=== PATIENT | female | born 1995 | race Caucasian/White ===

== ENCOUNTER 2019-07-25 11:48 | Emergency (ER) | payer SELFPAY | END 2019-07-25 14:36 | disposition home or self-care (01) | LOC: ER 11:48 | DX: J06.9 Acute upper respiratory infection, unspecified (principal); Z20.828 Contact with and (suspected) exposure to other viral communicable diseases; F45.8 Other somatoform disorders; B34.9 Viral infection, unspecified; R11.2 Nausea with vomiting, unspecified; F17.210 Nicotine dependence, cigarettes, uncomplicated ==

== ENCOUNTER 2019-10-15 10:59 | Inpatient (IN) | payer OTHER ==
[~2019-10-15] VITALS: Ht 162.6 cm; Wt 77.2 kg
--- NOTE | ~2019-10-15 | HC ---
[facility] [place] [address] CONSULTATION Name: LEONARD HERNANDEZ Room #: 170-1 ADM IN M.R.#: [id number] Admission: 10/15/19 Attend Phys: Elroy Sandy MD Discharge: Date of : 89 Report #: [id number] THIS REPORT FOR: cc: Monica Chatterjee Christine L. DO Khosla, Parveen K. MD ~ CC: Monica Sandy DATE OF SERVICE: 10/15/2019 HISTORY OF PRESENT ILLNESS: This is a 24-year-old female patient who was discussed with Dr. Frederick, multiple times today. The patient had presented with nonspecific symptoms that she has some numbness in her lower extremities, which became better, but today she had facial numbness, which started yesterday. Because of that, the possibility of MS was entertained and an MRI was obtained. MRI was done and they described the lesions consistent with multiple sclerosis. I reviewed the MRI and I reviewed the MRI films and this patient has a lesion on the right side, which is periventricular and it is a prominent lesion, but the patient's symptoms are also on the right side. They have described some brainstem or mid brain lesions to me that does not appear to be very impressive. There is a question of lesion in the cerebellum. Symptoms are sensory. REVIEW OF SYSTEMS: Indicate her records indicate that she was here not too long ago. She was a COVID suspect, but the test was negative. She does have what looks like some anxiety. She has lost her insurance recently. To me, she tells me she does not smoke or drink alcohol. Some of the records indicates that she used to smoke about 5-6 cigarettes a day. Otherwise, she is healthy and a 14-point review of system was mostly noncontributory. PAST MEDICAL HISTORY: Negative for any problems like this. FAMILY HISTORY: Negative for MS. SOCIAL HISTORY: She does not drink alcohol. PHYSICAL EXAMINATION: Indicate she is alert, responsive, able to follow simple and complex command. Cranial nerve examinations appear mostly unremarkable except she says sensation is different on the right side as compared to the left side. There is no meningeal sign. There is no carotid bruit. Reflexes are symmetrical and plantar appear to be downgoing. I could not look at the fundus. Blood pressure is 102/75, respiration is 24, and pulse is 92. LABORATORY DATA: Done recently and they were okay. The patient already had an MRI of the brain with and without contrast and that does not appear to be showing any enhancement in the lesion. She had a urine test, which [address] [address] CONSULTATION Name: LEONARD HERNANDEZ Room #: 170-1 ADM IN M.R.#: [id number] Admission: 10/15/19 Attend Phys: Elroy Sandy MD Discharge: Date of : [birth year] Report #: [id number] was unremarkable. IMPRESSION: This patient is a suspect for multiple sclerosis because of MRI finding. It can also be clinically isolated syndrome. She has symptoms in the right side of the face and the lesion is also on the right side. I discussed all of this with the patient and told her that we will do an MRI of the thoracic and cervical spine. I think we should do it with and without contrast. She will need a spinal tap. I discussed the indication, potential complication, and alternatives of spinal tap. She wants to proceed with it. I would like to do a blood test on her, although she says there is no chance of . She understands that the test does not fully exclude the and she understands her options in that regard. We will await the results of this test to see if we need to start her on steroids or not. Thank you very much for this referral and about a total of 50 minutes of time was spent taking care of this patient today and majority of that time was spent counseling and coordinating. By: [id number] [id number] Andrei Cornelius MD /nt
[~2019-10-15 10:59] MED LIST: ONDANSETRON ODT8 MG PO; TESSALON PERLE100 MG PO; VENTOLIN HFA 1818 GM INH
[2019-10-15 11:04] VITALS: BP 114/75
[2019-10-15 18:48] LABS: ABSOLUTE NEUTROPHILS 5.9 thou/uL (1.4-8.2); BASOPHILS 1.1 % (0.0-2.0); EOSINOPHILS 2.8 % (0.0-3.0); HEMATOCRIT 43.2 % (37.0-47.0); HEMOGLOBIN 14.7 gm/dL (12.0-15.0); LYMPHOCYTES 22.1 % (24.0-44.0); MCH 31.3 pg (26.0-34.0); MCHC 34.1 g/dL (28.0-37.0); MCV 91.7 fL (80.0-100.0); MONOCYTES 6.1 % (1.0-8.0); POLYS 67.9 % (36.0-66.0); RBC 4.71 mil/uL (4.20-5.00); RDW 12.6 % (10.5-14.5); WBC 8.6 thou/uL (4.0-11.0)
[2019-10-15 18:53] LABS: CALCIUM 8.8 mg/dL (8.5-10.1); CREATININE 0.7 mg/dL (0.6-1.0); POTASSIUM 3.3 mmol/L (3.5-5.1)
[2019-10-15 19:14] VITALS: BP 112/70
[2019-10-15 19:14] LABS: PLATELET COUNT 224 thou/uL (150-400)
[2019-10-15 19:24] LABS: TSH 2.833 uIU/mL (0.358-3.740)
[2019-10-15 20:01] VITALS: BP 112/70
[2019-10-15 20:10] VITALS: BP 113/73
--- NOTE | 2019-10-16 03:04 | NUR ---
VSS-AFEBRILE. LUNGS CLEAR-ROOM AIR. ALL SYMPTOMS OF FACIAL NUMBNESS AND TINGLING HAVE RESOLVED. C/O HEADACHE ON ADMISSION, HAS ALSO RESOLVED AFTER BEING MEDICATED WITH PRESCIBED PAIN MEDICATIONS. OOB AD ALBERT-STEADY ON FEET. CALLS APPROPRIATELY WHEN NEEDING ANY ASSISTANCE.
[2019-10-16 13:02] LABS: APTT 31.4 Seconds (24.5-32.8); PROTIME 10.5 Seconds (9.3-11.4)
--- NOTE | 2019-10-16 13:44 | NUR ---
PT ADMITTED RELATED TO FACIAL NUMBNESS. CM REVIEWED CHART AND SPOKE WITH CARE TEAM. CM MET WITH PT AT BEDSIDE THIS DAY. PT IS A&O X4. CM ROLE INTRODCUED. PT INDICATED SHE LIVES IN A HOUSE WITH HER BOYFRIEND. SHE INDICATED THERE ARE 3 STEPS TO ENTER AND NONE INSIDE. 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 PT INDICATED HER PCP IS DR. AHSAN OWUSU. PT INDICATED SHE HAD QUIT HER JOB A WEEK AGO RELATED TO HER PAIN. PT INDICATED SHE PLANS TO RETURN HOME ONCE MEDICALLY STABLE. CM TO FOLLOW INDICATED WITH DC PLANNING.
[2019-10-16 13:49] VITALS: BP 105/69
[2019-10-16 14:31] LABS: CSF GLUCOSE 50 mg/dL (40-70); CSF PROTEIN 53 mg/dL (15-45)
[2019-10-16 14:33] LABS: CSF CLARITY CLEAR; CSF COLOR COLORLESS; VOLUME 12 ml
[2019-10-16 14:55] LABS: CSF RBC 14 /mm3
[2019-10-16 15:50] LABS: CSF EOSINOPHILS 0 %; CSF LYMPHOCYTES 91 % (40-80); CSF POLYS 1 %
[2019-10-16 15:52] LABS: CSF WBC 41 /mm3 (0-10)
[2019-10-16 18:06] LABS: LYME ANTIBODY SCREEN* <0.91 ISR (0.00-0.90)
--- NOTE | 2019-10-16 19:21 | NUR ---
Assumed pt care this am, VS stable and kept NPO for the MRI and spinal tap. Pt was very anxious, medications given. Pt got upset after all diagnostics were done, since as per the pt she was told my Dr. Middleton (neurology) that she could gohome after all discnostics procedures are done and can come back as out pt, this was not what the Dr. Middleton had indicated in the notes and verbalized to me, pt is to stay over night and wait for the results of the MRI and LP. Informed Dr. Hampton of the situation, pt was not being dc d/t none clearance of neuro. Explained this to the pt and the potential coomplications of post spinal tap and the elevated WBC in the spinal fluid. Pt verbalized understanding and still wished to go AMA. Papers for AMA signed, IV removed, pt has been brought down to the ER, [facility] picked the pt up.
[2019-10-21 11:07] LABS: CSF IgG 11.7 mg/dL (0.0-8.6)
== END 2019-10-16 19:30 | disposition left against medical advice (07) | DRG 60 ==
LOC: ER 10:59 → EROBS 17:30 → 4W 17:30 → EROBS 20:03 → 4W 20:26
PROVIDERS: Emergency Medicine; Psychiatry & Neurology Neuromuscular Medicine; ADMIT Internal Medicine; ATTEND Internal Medicine
PROC: B01B1ZZ Fluoroscopy of Spinal Cord using Low Osmolar Contrast (ICD-10-PCS; principal; 2019-10-16)
PROC: 009U3ZX Drainage of Spinal Canal, Percutaneous Approach, Diagnostic (ICD-10-PCS; principal; 2019-10-16)
DX: G37.9 Demyelinating disease of central nervous system, unspecified (principal); G62.9 Polyneuropathy, unspecified; F41.9 Anxiety disorder, unspecified; R45.1 Restlessness and agitation; Z87.891 Personal history of nicotine dependence; Z79.899 Other long term (current) drug therapy; Z53.29 Procedure and treatment not carried out because of patient's decision for other reasons
CPT/HCPCS: 10040

== ENCOUNTER 2019-10-31 10:46 | Emergency (ER) | payer OTHER ==
[~2019-10-31] VITALS: Ht 162.6 cm; Wt 77.1 kg
[2019-10-31 12:12] LABS: HEMOGLOBIN 14.3 gm/dL (12.0-15.0); MCH 31.8 pg (26.0-34.0); MCV 91.1 fL (80.0-100.0); RBC 4.5 mil/uL (4.20-5.00); RDW 12.2 % (10.5-14.5); WBC 7.8 thou/uL (4.0-11.0)
[2019-10-31 12:25] LABS: CREATININE 0.5 mg/dL (0.6-1.0); POTASSIUM 3.5 mmol/L (3.5-5.1)
[2019-10-31 12:31] LABS: ALBUMIN 4.3 g/dL (3.4-5.0); TOTAL BILIRUBIN 0.4 mg/dL (0.2-1.0)
[2019-10-31] MEDS ORDERED: PREDNISONE 20 M20 MG PO (13:09)
[2019-10-31 13:45] VITALS: BP 117/64
== END 2019-10-31 14:00 | disposition home or self-care (01) ==
LOC: ER 10:46
PROVIDERS: Emergency Medicine
DX: G35 Multiple sclerosis (principal); R53.1 Weakness

== ENCOUNTER 2021-03-15 10:59 | Emergency (ER) | payer OTHER ==
[~2021-03-15] VITALS: Ht 162.6 cm; Wt 79.4 kg
[~2021-03-15 10:59] MED LIST changes: +PREDNISONE 20 M20 MG PO
[2021-03-15 11:06] VITALS: BP 109/81
== END 2021-03-15 11:30 | disposition home or self-care (01) ==
LOC: ER 10:59
PROVIDERS: Physician Assistant
DX: O26.891 Other specified pregnancy related conditions, first trimester (principal); Z20.822 Contact with and (suspected) exposure to COVID-19; Z90.89 Acquired absence of other organs; Z3A.01 Less than 8 weeks gestation of pregnancy